=== PATIENT | male | born 2000 | race Caucasian/White ===

== ENCOUNTER 2022-10-22 21:41 | Emergency (ER) | payer OTHER ==
[2022-10-22 21:47] VITALS: BP 110/55; PULSE 80; RESP 16; TEMP 99.2; BMI 25.1
== END 2022-10-22 22:53 | disposition home or self-care (01) ==
LOC: FER 21:41
DX: S00.93XA Contusion of unspecified part of head, initial encounter (principal); R51.9 Headache, unspecified; R42 Dizziness and giddiness; V49.50XA Passenger injured in collision with unspecified motor vehicles in traffic accident, initial encounter; Y93.I9 Activity, other involving external motion; Y92.810 Car as the place of occurrence of the external cause
CPT/HCPCS: 99283-25